=== PATIENT | female | born 1980 | race Caucasian/White ===

== ENCOUNTER 2020-11-26 10:18 | Outpatient (CLI) | payer OTHER | END 2020-11-26 10:23 | disposition home or self-care (01) | LOC: SONOGRAMA 10:18 | PROVIDERS: ATTEND Pathology Anatomic Pathology | DX: E04.1 Nontoxic single thyroid nodule (principal) ==

== ENCOUNTER 2022-03-06 17:20 | Outpatient (CLI) | payer OTHER | END 2022-03-06 17:22 | disposition home or self-care (01) | LOC: SONOGRAMA 17:20 | PROVIDERS: ATTEND Pathology Anatomic Pathology & Clinical Pathology | DX: E04.2 Nontoxic multinodular goiter (principal) ==